=== PATIENT | male | born 1990 | race Caucasian/White ===

== ENCOUNTER 2018-07-24 21:38 | Emergency (ER) | payer SELFPAY ==
[2018-07-24 23:09] LABS: APPEARANCE,URINE CLEAR; BILIRUBIN,URINE NEGATIVE (NEGATIVE); COLOR,URINE YELLOW; GLUCOSE, URINE NEGATIVE (NEGATIVE); KETONES,URINE NEGATIVE (NEGATIVE); LEUKOCYTE ESTERASE,URINE NEGATIVE (NEGATIVE); NITRITE,URINE NEGATIVE (NEGATIVE); PROTEIN,URINE NEGATIVE (NEGATIVE); URINE SPECIFIC GRAVITY 1.012; UROBILINOGEN,URINE NEGATIVE mg/dL (<2.0)
[2018-07-25] MEDS ORDERED: QUETIAPINE FUMARATE 100 MG TABLET PO ONE
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
[2018-07-25 00:38] LABS: ABSOLUTE BASOPHILS # (AUTO) 0.1 10^3/uL (0.0-0.2); ABSOLUTE EOSINOPHILS # (AUTO) 0.2 10^3/uL (0.0-0.6); ABSOLUTE MONOCYTES (AUTO) 0.6 10^3/uL (0.1-1.4); ABSOLUTE NEUT (AUTO) 5.4 10^3/uL (1.7-8.2); BASOPHILS % (AUTO) 0.7 % (0-2); EOSINOPHILS % (AUTO) 3.2 % (0-6); HEMATOCRIT 40.3 % (37.9-51.0); HEMOGLOBIN 13.8 g/dL (13.5-17.0); LYMPHOCYTES % (AUTO) 13.4 % (13-45); MEAN CORPUSCULAR HEMOGLOBIN 31.7 pg (27.0-33.4); MEAN CORPUSCULAR HGB CONC 34.3 g/dL (32.0-36.0); MEAN CORPUSCULAR VOLUME 92 fl (80-97); MONOCYTES % (AUTO) 8.4 % (3-13); PLATELET COUNT 215 10^3/uL (150-450); RED BLOOD COUNT 4.36 10^6/uL (4.35-5.55); SEGMENTED NEUTROPHILS % (AUTO) 74.3 % (42-78); TOTAL CELLS COUNTED % (AUTO) 100 %; WHITE BLOOD COUNT 7.3 10^3/uL (4.0-10.5)
[2018-07-25 00:45] LABS: ALANINE AMINOTRANSFERASE 16 U/L (21-72); ALBUMIN 3.9 g/dL (3.5-5.0); ALKALINE PHOSPHATASE 58 U/L (38-126); ANION GAP 10 (5-19); ASPARTATE AMINO TRANSFERASE 21 U/L (17-59); BILIRUBIN,DIRECT 0.2 mg/dL (0.0-0.4); BILIRUBIN,TOTAL 0.2 mg/dL (0.2-1.3); BLOOD UREA NITROGEN 12 mg/dL (7-20); CALCIUM 9.1 mg/dL (8.4-10.2); CARBON DIOXIDE 28 mmol/L (22-30); CHLORIDE 100 mmol/L (98-107); GLUCOSE 104 mg/dL (75-110); POTASSIUM 4.1 mmol/L (3.6-5.0); SODIUM 137.7 mmol/L (137-145); TOTAL PROTEIN 7.1 g/dL (6.3-8.2)
[2018-07-25 00:47] LABS: ACETAMINOPHEN < 10 ug/mL (10-30); ALCOHOL < 10 mg/dL (NONE DETECTED); SALICYLATE < 1.0 mg/dL (2.0-20.0)
[2018-07-25] MEDS: QUETIAPINE FUMARATE 100 MG TABLET PO SCH ×2 (01:03→23:08)
[2018-07-25] MEDS: ARIPIPRAZOLE 5 MG TABLET PO SCH ×2 (01:04→09:34)
[2018-07-25 06:35] LABS: URINE AMPHETAMINES SCREEN NEGATIVE; URINE BARBITURATES SCREEN NEGATIVE; URINE BENZODIAZEPINES SCREEN NEGATIVE; URINE COCAINE SCREEN NEGATIVE; URINE MARIJUANA (THC) SCREEN UNCONFIRMED POSITIVE; URINE METHADONE SCREEN NEGATIVE; URINE PHENCYCLIDINE SCREEN NEGATIVE
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
--- NOTE | 2018-07-25 10:00 | ER Document Report ---
Doctor's Note Notes: 07/25/18 10:00 As the rounding physician for our psychiatric patients, I have reviewed the chart, vitals, lab work. Patient has been examined and noted to be . I am awaiting mental health in [facility]. Patient has no complaints. No events reported overnight. He is resting comfortably. PHYSICAL EXAMINATION: GENERAL: Well-appearing, well-nourished and in no acute distress. HEAD: Atraumatic, normocephalic. EYES: Pupils equal round extraocular movements intact, conjunctiva are normal. ENT: Nares patent NECK: Normal range of motion LUNGS: No respiratory distress Musculoskeletal: Normal range of motion NEUROLOGICAL: Normal speech, normal gait. PSYCH: Normal mood, normal affect. SKIN: Warm, Dry, normal turgor, no rashes or lesions noted.
--- NOTE | 2018-07-25 13:59 | EKG REPORT ---
SEVERITY:- BORDERLINE ECG - SINUS RHYTHM NONSPECIFIC INTRAVENTRICULAR CONDUCTION DELAY : Confirmed by: Cody Dong MD 25-Jul-2018 13:58:57
[2018-07-26] MEDS: ARIPIPRAZOLE 5 MG TABLET PO SCH (09:16)
[2018-07-26 09:27] VITALS: BP 122/78
--- NOTE | 2018-07-26 09:40 | ER Document Report ---
Doctor's Note Notes: 07/26/18 09:39 28-year-old male with past medical history as recorded in the chart who supposedly was discharged from [facility] recently supposed to be taking Abilify and Seroquel. Patient supposedly has been noncompliant with these medications. He has shown some slightly aggressive behavior towards his grandmother. His aunt Genna that lives on the same plot of land also noticed that the patient is not taking his medications and is acting slightly more aggressive and disconnected. Psychiatry team has seen and evaluated the patient. Waiting for the final disposition and plan. Patient is calm and cooperative at this moment. Vital signs are stable. 07/26/18 11:33 We have had a family meeting with both the grandmother and the aunt and the psychology team. To take the medications as prescribed. Grandmom appears to be in agreement with being a little more patient with the child. Both patient, grandmom, and aunt are comfortable with the patient going home to the care of [facility]. They understand strict return precautions and mobile crisis contact information has been provided.
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
== END 2018-07-26 12:03 | disposition home or self-care (01) ==
LOC: ER 21:38
DX: F25.0 Schizoaffective disorder, bipolar type (principal); F17.210 Nicotine dependence, cigarettes, uncomplicated
CPT/HCPCS: 36415; 80053; 80307; 81001; 85025; 93005